=== PATIENT | female | born 1955 | race African-American/Black ===

== ENCOUNTER 2018-03-25 18:16 | Emergency (ER) | payer BC ==
[2018-03-25 18:38] VITALS: BP 143/70
[2018-03-25] MEDS ORDERED: ASPIRIN PO ONE (18:38)
[2018-03-25 19:25] LABS: Hematocrit 29.1 % (30.3-42.9); Hemoglobin 9.8 gm/dl (10.1-14.3); Mean Corpuscular HGB Conc 34 % (30-34); Mean Corpuscular Hemoglobin 31 pg (28-32); Mean Corpuscular Volume 91 fl (79-97); Platelet Count 144 K/mm3 (140-440); Red Blood Count 3.22 M/mm3 (3.65-5.03); Red Cell Distribution Width 17.2 % (13.2-15.2)
[2018-03-25 19:49] LABS: BUN/Creatinine Ratio 30; Blood Urea Nitrogen 27 mg/dL (7-17); Calcium 8.8 mg/dL (8.4-10.2); Hemolysis Index 21
[2018-03-25 21:55] LABS: Basophils % (Manual) 0 % (0.0-1.8); Eosinophils % (Manual) 0 % (0.0-4.3); Total Cells Counted 100
[2018-03-25 21:56] LABS: Anisocytosis 1+; Ovalocytes 1+; Platelet Estimate Consistent w Auto
== END 2018-03-26 00:48 | disposition left against medical advice (07) ==
LOC: ED 18:16
DX: R07.89 Other chest pain (principal); Z53.21 Procedure and treatment not carried out due to patient leaving prior to being seen by health care provider
CPT/HCPCS: 36415; 80048; 84484; 85007; 85025; 93005; 93010